=== PATIENT | female | born 1965 | race Caucasian/White ===

== ENCOUNTER 2019-07-05 15:52 | Emergency (ER) | payer OTHER, SELFPAY ==
[2019-07-05 16:42] VITALS: BP 139/64; PULSE 52; RESP 20; TEMP 36.7; O2SAT 100
--- NOTE | 2019-07-05 17:14 | ED.GENADULT ---
HPI - General Adult General Chief complaint: Eye Problems Stated complaint: Allergies Time Seen by Provider: 07/05/19 17:15 Source: patient and RN notes reviewed Mode of arrival: ambulatory Limitations: no limitations History of Present Illness HPI narrative: This is 54 years old female presents to the office for an evaluation of sinus allergies for two weeks. Saw her doctor for these symptoms about two weeks ago. He switched her from Zyrtec to Xyzal with no changes. Stated her symptom worsening for the last 2-day. Symptoms include watery eyes, itchy, blurry, stuffy nose, sneezing, and cough. Denies fever, vomiting, or diarrhea. She is not diabetic. She does not smoke. Related Data Home Medications Medication Instructions Recorded Confirmed cetirizine 10 mg PO DAILY 05/22/19 07/05/19 gabapentin 300 mg PO BID 05/22/19 07/05/19 metoprolol succinate 50 mg PO DAILY 05/22/19 07/05/19 ranitidine HCl 150 mg PO BID 05/22/19 07/05/19 topiramate 100 mg PO BID 05/22/19 07/05/19 venlafaxine 100 mg PO QPM 05/22/19 07/05/19 Allergies Allergy/AdvReac Type Severity Reaction Status Date / Time banana Allergy Severe THROAT Verified 07/05/19 16:47 SWELLING Cephalosporins Allergy Severe THROAT Verified 07/05/19 16:47 SWELLING Penicillins Allergy Severe Swelling Verified 07/05/19 16:47 Review of Systems Review of Systems: Narrative: CONSTITUTIONAL: Denies fever EYES: Denies eyes trauma/injury. She wears glassess only. ENT: Denies sore throat, otalgia. CARDIOVASCULAR: Denies chest pain RESPIRATORY: Denies dyspnea, wheezing GASTROINTESTINAL: Denies abdominal pain, nausea, vomiting, diarrhea. GENITOURINARY: Denies urinary symptoms or discharge SKIN: Denies rash MUSCULOSKELETAL: Denies acute back pain NEUROLOGIC: Denies lightheaded PMFSH Past Medical History Medical History Asthma Chronic back pain Gallstones Hypertension Irritable bowel syndrome Migraines Myocardial infarction Surgical History Surgical History History of bilateral carpal tunnel release History of hysterectomy Hx of tonsillectomy Social History Social History Smoking status: Former smoker Additional smoking assessment comments: states quit 3 years ago, states smoked off and on for 15 years Gender identity (if verbalized by the patient): Female Comments At time of signature, I agree with nursing past medical, surgical, social and family history. There is no relevant family history pertinent to the presenting complaint. Exam Narrative: Exam Narrative: GENERAL: This is a well-nourished, well-developed patient, in no apparent distress. EYES: bilateral eyes appears pink and watery; no matted eyelases. Vision is grossly intact. EARS: External ears normal, auditory canals clear and without drainage, TMs normal without perforation. Hearing grossly intact. NOSE: External nose normal with no obvious nasal discharge, nares edematous and erythema. THROAT: Mucous membranes moist, posterior pharynx clear. NECK: Neck supple, non-tender without lymphadenopathy, masses or thyromegaly. CARDIOVASCULAR: Regular rate and rhythm without murmurs, gallops, or rubs. RESPIRATORY: Clear to auscultation. Breath sounds equal bilaterally. No wheezes, rales, or rhonchi. GASTROINTESTINAL: Abdomen soft, non-tender, nondistended. Bowel sounds are active. No hepato-splenomegaly, or palpable masses. No guarding. SKIN: warm, intact with no suspicious lesions or rash, good texture and turgor. NEURO: awake, alert, and oriented to person, place and time. There were no obvious focal neurologic abnormalities. Steady gait [place] Coma Scale Eye Opening: Spontaneous 4 [place] Coma Scale Motor: Obeys Commands 6 [place] Coma Scale Verbal: Oriented 5 Medical Decision Making MDM Narrative Medical decision making n
== END 2019-07-05 17:39 | disposition home or self-care (01) ==
PROVIDERS: Emergency Provider Nurse Practitioner; PCP Internal Medicine
DX: H10.13 Acute atopic conjunctivitis, bilateral (principal); J31.0 Chronic rhinitis; J45.909 Unspecified asthma, uncomplicated; I10 Essential (primary) hypertension; I25.2 Old myocardial infarction; Z87.891 Personal history of nicotine dependence
CPT/HCPCS: 99213; G0463

== ENCOUNTER 2021-02-26 12:22 | Emergency (ER) | payer OTHER, SELFPAY ==
--- NOTE | 2021-02-26 12:30 | ED.EYEPROB ---
HPI - Eye Problem General Chief complaint: Eye Problems Stated complaint: discharge/reddness left eye Source: patient Mode of arrival: ambulatory Limitations: no limitations History of Present Illness HPI Narrative: Patient is a 55-year-old female with left eye pain, redness and discharge x1 day. She reports that she awoke like this today. She reports possibly something blowing in her eye yesterday afternoon. She does not wear contacts. She reports pain, discharge and photophobia. She denies all other complaints at this time. Patient is Covid vaccinated x2. She has used no [id number] medications prior to arrival. chief complaint: eye redness Related Data Home Medications Medication Instructions Recorded Confirmed cetirizine 10 mg PO DAILY 05/22/19 02/26/21 gabapentin 300 mg PO BID 05/22/19 02/26/21 metoprolol succinate 50 mg PO DAILY 05/22/19 02/26/21 ranitidine HCl 150 mg PO BID 05/22/19 02/26/21 venlafaxine 100 mg PO QPM 05/22/19 02/26/21 albuterol 90 mcg INHALATION Q4H PRN 02/26/21 02/26/21 cholecalciferol (vitamin D3) 25 mcg PO DAILY 02/26/21 02/26/21 [Vitamin D3] diclofenac sodium 75 mg PO BID 02/26/21 02/26/21 Allergies Allergy/AdvReac Type Severity Reaction Status Date / Time banana Allergy Severe THROAT Verified 02/26/21 12:43 SWELLING Cephalosporins Allergy Severe THROAT Verified 02/26/21 12:43 SWELLING Penicillins Allergy Severe Swelling Verified 02/26/21 12:43 Review of Systems Review of Systems: CONSTITUTIONAL: Denies fever, chills, or sweats. EYES: Reports pain, redness and discharge to left eye ENT: Denies rhinorrhea, congestion, sore throat, or otalgia. CARDIOVASCULAR: Denies chest pain, palpitations, or edema. RESPIRATORY: Denies cough or dyspnea. GASTROINTESTINAL: Denies abdominal pain, nausea, vomiting, or diarrhea. GENITOURINARY: Denies dysuria or hematuria. SKIN: Denies rash or itching. MUSCULOSKELETAL: Denies back pain, joint pain, or myalgia. NEUROLOGIC: Denies headache, numbness, dizziness, or weakness. PSYCHIATRIC: Denies anxiety or depression. ON LICENSE OF [facility] Past Medical History Medical History (Updated 10/09/21 @ 12:53 by WATSON Moreira) Asthma Chronic back pain Gallstones Hypertension Irritable bowel syndrome Migraines Myocardial infarction Surgical History Surgical History History of bilateral carpal tunnel release History of hysterectomy Hx of tonsillectomy Social History Social History (Updated 02/26/21 @ 12:33 by WATSON Moreira) Smoking status: Former smoker Tobacco type: cigarettes Additional smoking assessment comments: states quit 3 years ago, states smoked off and on for 15 years Alcohol intake: never Substance use: never Living arrangements: with family Gender identity (if verbalized by the patient): Female Comments At the time of signature, I have reviewed and agree with nursing past medical, surgical, social, and family history unless otherwise noted. Please see nursing chart for further information. There is no relevant family history pertinent to the presenting complaint. Exam Narrative: GENERAL: Well-appearing, well-nourished, and in no acute distress. HEAD: Normocephalic, atraumatic. EYES: EOMI. left eye sclera injected, clear discharge noted ENT: Mucous membranes pink and moist. CHEST: No respiratory distress. HEART: Regular rate and rhythm. EXTREMITIES: Normal range of motion. SKIN: Warm, dry, no rash. NEURO: No focal deficits. Alert and oriented x3. Gait steady. PSYCH: Normal affect. No signs of depression or anxiety. Procedures Other Procedure Procedure 1: Other Procedure: Left eye was anesthetized with 1 drop of tetracaine and anesthesia was achieved. The eye was flushed with eyewash. Lid was inverted and examined. Cornea was dyed with fluorescein and abrasion noted. Patient tolerated procedure well. MDM - Eye Problem MDM Narr
[2021-02-26 12:31] VITALS: BP 154/74; PULSE 64; RESP 18; TEMP 37.2; O2SAT 96
[2021-02-26 12:47] VITALS: BP 154/74; PULSE 64; RESP 18; TEMP 37.2; O2SAT 96
== END 2021-02-26 13:02 | disposition home or self-care (01) ==
PROVIDERS: Emergency Provider Nurse Practitioner; PCP Internal Medicine
DX: S05.02XA Injury of conjunctiva and corneal abrasion without foreign body, left eye, initial encounter (principal); X58.XXXA Exposure to other specified factors, initial encounter; J45.909 Unspecified asthma, uncomplicated; I10 Essential (primary) hypertension; I25.2 Old myocardial infarction; Z87.891 Personal history of nicotine dependence
CPT/HCPCS: 99213; A9270; G0463

== ENCOUNTER 2021-07-18 10:49 | Emergency (ER) | payer OTHER, SELFPAY ==
--- NOTE | 2021-07-18 10:51 | ED.URI ---
HPI - URI/Sore Throat General Chief Complaint: Upper Respiratory Infection Stated Complaint: Shortness of Breath Time Seen by Provider: 07/18/21 10:51 Source: patient and RN notes reviewed History of Present Illness HPI Narrative: Patient is a 56-year-old female who presents the urgent care with complaints of shortness of breath, cough, sore throat, intermittent nausea and ear pain. Patient states that her symptoms started last and seems to have gotten worse. Patient states that she does have a history of pneumonia and asthma. Patient has been using her inhaler but has been out of nebulizer solution. Patient has also been using [id number] cough medications. Denies of any history of ill contacts. Patient has had the COVID vaccine. No other acute complaints. No acute distress noted. Patient aware of the plan of care. Some parts of this dictation were generated by voice recognition software and may contain typographical and/or grammatical inaccuracies. Related Data Home Medications Medication Instructions Recorded Confirmed cetirizine 10 mg PO DAILY 05/22/19 07/18/21 gabapentin 300 mg PO BID 05/22/19 07/18/21 metoprolol succinate 50 mg PO DAILY 05/22/19 07/18/21 ranitidine HCl 150 mg PO BID 05/22/19 07/18/21 venlafaxine 100 mg PO QPM 05/22/19 07/18/21 albuterol 90 mcg INHALATION Q4H PRN 02/26/21 07/18/21 cholecalciferol (vitamin D3) 25 mcg PO DAILY 02/26/21 07/18/21 [Vitamin D3] diclofenac sodium 75 mg PO BID 02/26/21 07/18/21 Allergies Allergy/AdvReac Type Severity Reaction Status Date / Time banana Allergy Severe THROAT Verified 07/18/21 11:11 SWELLING Cephalosporins Allergy Severe THROAT Verified 07/18/21 11:11 SWELLING Penicillins Allergy Severe Swelling Verified 07/18/21 11:11 Review of Systems Review of Systems: CONSTITUTIONAL: Denies fever, chills, or sweats. EYES: Denies visual changes, redness, or discharge. ENT: Reports bilateral otalgia, rhinorrhea, sore throat CARDIOVASCULAR: Denies chest pain, palpitations, or edema. RESPIRATORY: Reports of cough and dyspnea GASTROINTESTINAL: Reports of intermittent nausea without abdominal pain, diarrhea or vomiting GENITOURINARY: Denies dysuria or hematuria. SKIN: Denies rash or itching. MUSCULOSKELETAL: Denies back pain, joint pain, or myalgia. NEUROLOGIC: Denies headache, numbness, or weakness. All other systems reviewed are negative, except as documented in HPI. [facility] Past Medical History Medical History (Updated 07/18/21 @ 11:55 by Valerie Cerda, WATSON) Asthma Chronic back pain Gallstones Hypertension Irritable bowel syndrome Migraines Myocardial infarction Surgical History Surgical History History of bilateral carpal tunnel release History of hysterectomy Hx of tonsillectomy Social History Social History (Updated 02/26/21 @ 12:33 by Janice Brown, ADMISSIONS DIRECTOR) Smoking status: Former smoker Tobacco type: cigarettes Additional smoking assessment comments: states quit 3 years ago, states smoked off and on for 15 years Alcohol intake: never Substance use: never Gender identity (if verbalized by the patient): Female Comments At the time of my signature, I reviewed and agree with the nursing past medical, surgical, social, and family history. There is no relevant family history pertinent to the patient complaint. Exam Narrative: GENERAL: This is a well-nourished, well-developed patient, in no apparent distress. HEAD: normocephalic, atraumatic. EYES: PERRL. Sclera clear/white. Vision is grossly intact. EARS: External ears normal, auditory canals clear and without drainage, TMs normal without perforation. Hearing grossly intact. NOSE: External nose normal with no obvious nasal discharge, nares without redness, clear to yellow rhinorrhea. THROAT: Mucous membranes moist, posterior pharynx clear. Moderate postnasal drainage NECK: Neck supple CARDIOVASCULAR:
[2021-07-18 11:03] VITALS: BP 139/75; PULSE 61; RESP 17; TEMP 36.4; O2SAT 97
[2021-07-18] MEDS: IPRATROPIUM BR 0.02% INH SOLN 0.5 MG/2.5 ML VIAL INHALATION (11:22)
[2021-07-18] MEDS: ALBUTEROL SULFATE NEB 2.5 MG/3 ML INH INHALATION (11:22)
== END 2021-07-18 12:05 | disposition home or self-care (01) ==
PROVIDERS: Emergency Provider Nurse Practitioner Family; PCP Internal Medicine
DX: J40 Bronchitis, not specified as acute or chronic (principal); J45.901 Unspecified asthma with (acute) exacerbation; Z20.822 Contact with and (suspected) exposure to COVID-19; Z87.891 Personal history of nicotine dependence; I10 Essential (primary) hypertension; I25.2 Old myocardial infarction
CPT/HCPCS: 87426; 94640; 99213; C9803; G0463

== ENCOUNTER 2021-10-01 14:43 | Emergency (ER) | payer OTHER, SELFPAY ==
[2021-10-01 14:50] VITALS: BP 147/61; PULSE 59; RESP 16; TEMP 36.8; O2SAT 98
--- NOTE | 2021-10-01 15:28 | ED.URI ---
HPI - URI/Sore Throat General Chief Complaint: Skin/Abscess/Foreign Body Stated Complaint: Swollen Gland Time Seen by Provider: 10/01/21 15:28 Source: patient and RN notes reviewed Mode of arrival: ambulatory Limitations: no limitations History of Present Illness HPI Narrative: 56-year-old female presents concern for swollen lymph node on the right side of her neck. She reports last week she had some runny nose, sneezing little bit of cough that has improved. However she is now concerned about the swollen lymph node. Reports it slightly tender. She denies any sore throat, trouble swallowing, fever, stiff neck. Reports she is worried because her mother of a blood clot in her neck. MD elicited complaint: other (Swollen lymph node) Related Data Home Medications Medication Instructions Recorded Confirmed cetirizine 10 mg PO DAILY 05/22/19 07/18/21 gabapentin 300 mg PO BID 05/22/19 07/18/21 metoprolol succinate 50 mg PO DAILY 05/22/19 07/18/21 venlafaxine 100 mg PO QPM 05/22/19 07/18/21 cholecalciferol (vitamin D3) 25 mcg PO DAILY 02/26/21 07/18/21 [Vitamin D3] diclofenac sodium 75 mg PO BID 02/26/21 07/18/21 famotidine 10/01/21 montelukast mg 10/01/21 topiramate 10/01/21 Allergies Allergy/AdvReac Type Severity Reaction Status Date / Time banana Allergy Severe THROAT Verified 10/01/21 15:21 SWELLING Cephalosporins Allergy Severe THROAT Verified 10/01/21 15:21 SWELLING Penicillins Allergy Severe Swelling Verified 10/01/21 15:21 Review of Systems Review of Systems: CONSTITUTIONAL: Denies malaise, chills, sweats, or fever. EYES: Denies visual changes, redness, or discharge. ENT: Denies rhinorrhea, congestion, sinus pain, otalgia and sore throat. Reports swollen lymph node on the right side of the neck CARDIOVASCULAR: Denies chest pain, palpitations, or edema. RESPIRATORY: Denies cough. Denies dyspnea. GASTROINTESTINAL: Denies abdominal pain, nausea, vomiting, diarrhea SKIN: Denies rash or itching. MUSCULOSKELETAL: Denies myalgia. NEUROLOGIC: Denies headache. All systems reviewed & are unremarkable except as noted in HPI and below PMFSH Past Medical History Medical History (Updated 10/01/21 @ 15:38 by Arely Villagran, VANI) Asthma Chronic back pain Gallstones Hypertension Irritable bowel syndrome Migraines Myocardial infarction Surgical History Surgical History History of bilateral carpal tunnel release History of hysterectomy Hx of tonsillectomy Social History Social History (Updated 02/26/21 @ 12:33 by Janice Brown, [employer]NER) Smoking status: Former smoker Tobacco type: cigarettes Additional smoking assessment comments: states quit 3 years ago, states smoked off and on for 15 years Alcohol intake: never Substance use: never Gender identity (if verbalized by the patient): Female Comments At time of signature, agree with nursing past medical, surgical, social and family history. There is no relevant family history pertinent to the presenting complaint Exam Narrative: GENERAL: Well-appearing, well-nourished, and in no acute distress. HEAD: Normocephalic EYES: PERRLA, conjunctivae clear ENT: Nares clear, no discharge. Mucous membranes moist. TM pearly moulton with sharp light reflex bilaterally; no tragal tenderness. Oropharynx not erythematous without lesions. Tonsils not enlarged and without exudate, no drooling, no hoarseness, no trismus, uvula midline. NECK: Supple. Mild right cervical lymphadenopathy. No jugular venous distension, thyromegaly, or carotid bruits. Carotids were easily palpable bilaterally. CHEST: Clear to auscultation, breath sounds equal. No wheezing, rhonchi, rales, or stridor. No respiratory distress, speaks in full sentences. HEART: Regular rate and rhythm. No murmur heard. SKIN: Warm, dry, no rash. NEURO: Alert and oriented x3. PSYCH: Normal mood and affect Course Course [facility]
== END 2021-10-01 15:40 | disposition home or self-care (01) ==
PROVIDERS: Emergency Provider Nurse Practitioner; PCP Internal Medicine
DX: R59.1 Generalized enlarged lymph nodes (principal); J45.909 Unspecified asthma, uncomplicated; I10 Essential (primary) hypertension; I25.2 Old myocardial infarction; Z87.891 Personal history of nicotine dependence
CPT/HCPCS: 99211; G0463

== ENCOUNTER 2022-03-26 14:53 | Emergency (ER) | payer OTHER, SELFPAY ==
--- NOTE | ~2022-03-26 | XR_ITS ---
EXAMINATION: XR chest 2V Exam Date/Time: 03/26/2022 16:48 CHARGEMASTER SPECIALIST HISTORY: COUGH/WHEEZING X 1 WEEK. Comparison: None available. RESULT: Lines, tubes, and devices: None. Lungs and pleura: Clear. Cardiomediastinal silhouette: Unremarkable. Polygonal opacity projects over the left midlung, presum ably representing external artifact. Other: No acute osseous or upper abdominal finding. IMPRESSION: No acute cardiopulmonary process. Reviewed, dictated and finalized at location K. GEMASTER SPECIALIST
[2022-03-26 15:00] VITALS: BP 141/70; PULSE 72; RESP 22; TEMP 36.6; O2SAT 98
--- NOTE | 2022-03-26 16:36 | ED.GENADULT ---
HPI - General Adult General Chief complaint: Upper Respiratory Infection Stated complaint: Shortness of Breath Source: patient Mode of arrival: ambulatory Limitations: no limitations History of Present Illness HPI narrative: Patient presents for evaluation of sick symptoms for the last week. Symptoms include fever, nasal congestion, postnasal drainage, sore throat, nonproductive cough, wheezing, shortness of breath, and nausea. No diarrhea, vomiting or chest pain. She has an underlying hx of asthma and states she has been using her albuterol inhaler every four hours the past week. She has only used her neb once in the past week and it so happened to be today. She does not smoke. She had COVID two years ago. No recent sick contacts. She is not taking any medications to assist with her symptoms. No additional complaints or concerns. Related Data Home Medications Medication Instructions Recorded Confirmed cetirizine 10 mg tablet 10 mg PO DAILY 05/22/19 03/26/22 gabapentin 300 mg capsule 300 mg PO BID 05/22/19 03/26/22 metoprolol succinate 50 mg 50 mg PO DAILY 05/22/19 03/26/22 tablet,extended release 24 hr venlafaxine 100 mg tablet 100 mg PO QPM 05/22/19 03/26/22 cholecalciferol (vitamin D3) 25 25 mcg PO DAILY 02/26/21 03/26/22 mcg (1,000 unit) capsule (Vitamin D3) diclofenac sodium 75 mg 75 mg PO BID 02/26/21 03/26/22 tablet,delayed release famotidine 20 mg tablet 20 mg PO DAILY 10/01/21 03/26/22 montelukast 10 mg tablet 10 mg PO DAILY 10/01/21 03/26/22 topiramate 100 mg tablet 100 mg PO BID 10/01/21 03/26/22 budesonide-formoterol HFA 80 1 puff inhalation BID 03/26/22 03/26/22 mcg-4.5 mcg/actuation aerosol inhaler (Symbicort) Allergies Allergy/AdvReac Type Severity Reaction Status Date / Time banana Allergy Severe THROAT Verified 03/26/22 15:32 SWELLING Cephalosporins Allergy Severe THROAT Verified 03/26/22 15:32 SWELLING Penicillins Allergy Severe Swelling Verified 03/26/22 15:32 Review of Systems Review of Systems: CONSTITUTIONAL: Reports fever. Denies chills EYES: Denies visual changes, redness, or discharge. ENT: Reports nasal congestion, postnasal drainage and sore throat CARDIOVASCULAR: Denies chest pain, palpitations, or edema. RESPIRATORY: Reports cough, wheezing and SOB GASTROINTESTINAL: Reports nausea. Denies abdominal pain, vomiting, or diarrhea. GENITOURINARY: Denies dysuria or hematuria. SKIN: Denies rash or itching. MUSCULOSKELETAL: Denies back pain, joint pain, or myalgia. NEUROLOGIC: Denies headache, numbness, dizziness, or weakness. PSYCHIATRIC: Denies anxiety or depression. [facility] Past Medical History Medical History (Updated 03/26/22 @ 17:24 by Guillermo Geronimo, HAND GLOVE CLEANER, ) Asthma Chronic back pain Gallstones Hypertension Irritable bowel syndrome Migraines Myocardial infarction Surgical History Surgical History History of bilateral carpal tunnel release History of hysterectomy Hx of tonsillectomy Family History Family History Mother Family history non-contributory Social History Social History (Updated 03/26/22 @ 16:39 by Guillermo Geronimo, [facility], ) Smoking status: Former smoker Tobacco type: cigarettes Additional smoking assessment comments: states quit 3 years ago, states smoked off and on for 15 years Alcohol intake: never Substance use: never Gender identity (if verbalized by the patient): Female Spiritual care concerns: No Exam Narrative: GENERAL: Well-appearing, well-nourished, and in no acute distress. HEAD: Normocephalic, atraumatic. EYES: PERRLA and EOMI. ENT: Nares clear, no rhinorrhea or epistaxis. Mucous membranes moist. Oropharynx without tonsillar hypertrophy exudate or other lesions. Bilateral TMs pearly moulton nonbulging NECK: Supple. No adenopathy or masses. No carotid bruits or JVD CHEST: Clarissa
== END 2022-03-26 17:27 | disposition home or self-care (01) ==
PROVIDERS: Emergency Provider Nurse Practitioner; PCP Internal Medicine
DX: J06.9 Acute upper respiratory infection, unspecified (principal); J45.909 Unspecified asthma, uncomplicated; I10 Essential (primary) hypertension; I25.2 Old myocardial infarction; Z87.891 Personal history of nicotine dependence; Z20.822 Contact with and (suspected) exposure to COVID-19
CPT/HCPCS: 71046; 87426; 87804; 99213; C9803; G0463

== ENCOUNTER 2022-05-09 13:04 | Emergency (ER) | payer OTHER, SELFPAY ==
[2022-05-09 13:12] VITALS: BP 155/63; PULSE 63; RESP 20; TEMP 36.8; O2SAT 96
--- NOTE | 2022-05-09 13:51 | ED.URI ---
HPI - URI/Sore Throat General Chief Complaint: Upper Respiratory Infection Stated Complaint: Cough Time Seen by Provider: 05/09/22 14:03 Source: patient and RN notes reviewed Mode of arrival: ambulatory Limitations: no limitations History of Present Illness HPI Narrative: 56-year-old female presents with concern for 2 week history of cough. She reports a history of asthma. She reports she had symptoms started 2 weeks ago, at that time she had fever, chills, aches, sweats. Reports those symptoms have improved but she continues to have a persistent cough with episodic shortness of breath. MD elicited complaint: cough and nasal congestion Related Data Home Medications Medication Instructions Recorded Confirmed cetirizine 10 mg tablet 10 mg PO DAILY 05/22/19 05/09/22 gabapentin 300 mg capsule 300 mg PO BID 05/22/19 05/09/22 metoprolol succinate 50 mg 50 mg PO DAILY 05/22/19 05/09/22 tablet,extended release 24 hr venlafaxine 100 mg tablet 100 mg PO QPM 05/22/19 05/09/22 cholecalciferol (vitamin D3) 25 25 mcg PO DAILY 02/26/21 05/09/22 mcg (1,000 unit) capsule (Vitamin D3) diclofenac sodium 75 mg 75 mg PO BID 02/26/21 05/09/22 tablet,delayed release famotidine 20 mg tablet 20 mg PO DAILY 10/01/21 05/09/22 montelukast 10 mg tablet 10 mg PO DAILY 10/01/21 05/09/22 topiramate 100 mg tablet 100 mg PO BID 10/01/21 05/09/22 budesonide-formoterol HFA 80 1 puff inhalation BID 03/26/22 05/09/22 mcg-4.5 mcg/actuation aerosol inhaler (Symbicort) Allergies Allergy/AdvReac Type Severity Reaction Status Date / Time banana Allergy Severe THROAT Verified 05/09/22 13:16 SWELLING Cephalosporins Allergy Severe THROAT Verified 05/09/22 13:16 SWELLING Penicillins Allergy Severe Swelling Verified 05/09/22 13:16 Review of Systems Review of Systems: CONSTITUTIONAL: Reports malaise. Denies chills, sweats, or fever. EYES: Denies visual changes, redness, or discharge. ENT: Reports rhinorrhea, congestion, left otalgia. Denies sinus pain and sore throat. CARDIOVASCULAR: Denies chest pain, palpitations, or edema. RESPIRATORY: Reports persistent cough. Denies dyspnea. GASTROINTESTINAL: Denies abdominal pain, nausea, vomiting, diarrhea SKIN: Denies rash or itching. MUSCULOSKELETAL: Denies myalgia. NEUROLOGIC: Denies headache. All systems reviewed & are unremarkable except as noted in HPI and below PMFSH Past Medical History Medical History (Updated 05/09/22 @ 13:59 by Arely Villagran NP) Asthma Chronic back pain Gallstones Hypertension Irritable bowel syndrome Migraines Myocardial infarction Surgical History Surgical History History of bilateral carpal tunnel release History of hysterectomy Hx of tonsillectomy Family History Family History Mother Family history non-contributory Social History Social History (Updated 03/26/22 @ 16:39 by TENNILLE RashidP, ) Smoking status: Former smoker Tobacco type: cigarettes Additional smoking assessment comments: states quit 3 years ago, states smoked off and on for 15 years Alcohol intake: never Substance use: never Gender identity (if verbalized by the patient): Female Spiritual care concerns: No Comments At time of signature, agree with nursing past medical, surgical, social and family history. There is no relevant family history pertinent to the presenting complaint Exam Narrative: GENERAL: Nontoxic-appearing and in no acute distress. HEAD: Normocephalic EYES: PERRLA, conjunctivae clear ENT: Nares clear. Mucous membranes moist. TM pearly moulton with dull light reflex bilaterally; no tragal tenderness. Oropharynx not erythematous without lesions. Tonsils not enlarged and without exudate, no drooling, no hoarseness, no trismus, uvula midline. NECK: Supple. No lymphadenopathy CHEST: Clear to auscultation, breath sounds eq
== END 2022-05-09 14:14 | disposition home or self-care (01) ==
PROVIDERS: Emergency Provider Nurse Practitioner; PCP Internal Medicine
DX: J06.9 Acute upper respiratory infection, unspecified (principal); J45.909 Unspecified asthma, uncomplicated; I10 Essential (primary) hypertension; I25.2 Old myocardial infarction; Z87.891 Personal history of nicotine dependence
CPT/HCPCS: 99213; G0463

== ENCOUNTER 2025-04-14 16:20 | Emergency (ER) | payer OTHER, SELFPAY ==
[2025-04-14 16:24] VITALS: BP 152/53; PULSE 67; RESP 20; TEMP 36.5; O2SAT 97
--- NOTE | 2025-04-14 16:36 | ED.URI ---
HPI - URI/Sore Throat General Chief Complaint: Upper Respiratory Infection Stated Complaint: Shortness of Breath/Cough Time Seen by Provider: 04/14/25 16:30 Source: patient Mode of arrival: ambulatory Limitations: no limitations History of Present Illness HPI Narrative: Livier is a 59-year-old female patient presenting to the clinic today with complaints of a 2 day history of cough and shortness of breath. She reports she does have some nasal congestion as well. No known fevers, chills, body aches. Is coughing up some clear phlegm. History of asthma. Last breathing treatment was last night. Patient is out of the breathing treatment medications. Related Data Home Medications ?Medication ?Instructions ?Recorded ?Confirmed ?Last Taken ?Type cetirizine 10 mg tablet 10 mg PO DAILY 05/22/19 05/09/22 Unknown History gabapentin 300 mg capsule 300 mg PO BID 05/22/19 05/09/22 Unknown History metoprolol succinate 50 mg 50 mg PO DAILY 05/22/19 05/09/22 Unknown History tablet,extended release 24 hr cholecalciferol (vitamin D3) 25 25 mcg PO DAILY 02/26/21 05/09/22 Unknown History mcg (1,000 unit) capsule (Vitamin D3) famotidine 20 mg tablet 20 mg PO DAILY 10/01/21 05/09/22 Unknown History montelukast 10 mg tablet 10 mg PO DAILY 10/01/21 05/09/22 Unknown History topiramate 100 mg tablet 100 mg PO BID 10/01/21 05/09/22 Unknown History budesonide-formoterol HFA 80 1 puff inhalation BID 03/26/22 05/09/22 Unknown History mcg-4.5 mcg/actuation aerosol inhaler (Symbicort) amlodipine 10 mg tablet mg 04/14/25 Unknown History duloxetine 30 mg capsule,delayed mg PO 04/14/25 Unknown History release duloxetine 60 mg capsule,delayed mg PO 04/14/25 Unknown History release pregabalin 75 mg capsule mg 04/14/25 Unknown History Allergies Allergy/AdvReac Type Severity Reaction Status Date / Time banana Allergy Severe THROAT Verified 04/14/25 16:31 SWELLING Cephalosporins Allergy Severe THROAT Verified 04/14/25 16:31 SWELLING Penicillins Allergy Severe Swelling Verified 04/14/25 16:31 Review of Systems Review of Systems: Pertinent positives per HPI. Patient denies any fever, chills, rash, headache, visual changes, dizziness, cough, shortness of breath, chest pain, palpitations, nausea, vomiting, diarrhea, constipation, abdominal pain, or any urinary issues. [facility] Past Medical History Medical History (Updated 04/14/25 @ 17:15 by Karl Elizabeth APRN) Asthma Chronic back pain Irritable bowel syndrome Gallstones Hypertension Myocardial infarction Migraines Surgical History Surgical History History of bilateral carpal tunnel release History of hysterectomy Hx of tonsillectomy Family History Family History Mother Family history non-contributory Social History Social History (Updated 03/26/22 @ 16:39 by Guillermo Geronimo APRN, [facility]) Smoking status: Former smoker Tobacco type: cigarettes Additional smoking assessment comments: states quit 3 years ago, states smoked off and on for 15 years Alcohol intake: never Substance use: never Living arrangements: with family Gender identity (if verbalized by the patient): Female Spiritual care concerns: No Comments At the time of my signature, I reviewed and agree with the nursing past medical, surgical, social, and family history. There is no relevant family history pertinent to the patient complaint. Exam Narrative: General: Well-developed, obese, in no apparent distress Head: Normocephalic, atraumatic Eyes: Pupils equally round and reactive to light bilaterally, EOM intact, sclera and conjunctive clear, no discharge, lids normal Ears: TMs intact and clear, ear canals clear, no drainage, grossly hearing normal. Nose: Nares patent, clear discharge, no inflammation, no sinus tenderness. Mouth: Oral pharynx without lesions or masses, good dentition, MMM. Postnasal drip Neck: Supple, trachea midline, no enlargement of anterior or posterior cervical nodes, no thyroid masses or goiter palpable. Cardio: Regular rate and rhythm, s1 and s2 normal, no murmur appreciated. Resp: Diminished breath sounds with expiratory wheezing, no rhonchi, rales, or rubs Course Course Emergency Course: Portions of this record may have been created with voice recognition software. Level of Care: Express Care Visit Vital Signs Vital signs: Vital Signs Temperature 36.5 C 04/14/25 16:24 Pulse Rate 67 04/14/25 16:24 Respiratory Rate 20 04/14/25 16:24 Blood Pressure 152/53 H 04/14/25 16:24 Pulse Oximetry 97 04/14/25 16:24 Oxygen Delivery Room Air 04/14/25 16:24 Temperature 36.8 C 04/14/25 16:46 Pulse Rate 73 04/14/25 16:46 Respiratory Rate 20 04/14/25 16:46 Blood Pressure 174/108 H 04/14/25 16:46 Pulse Oximetry 98 04/14/25 16:46 Oxygen Delivery Room Air 04/14/25 16:46 Vital signs reviewed MDM - URI/Sore Throat MDM Narrative Medical decision making narrative: At the time of visit patient is resting comfortably on the exam table. Patient appears to be nontoxic. Complaints of a 2 day history of cough and shortness of breath. She reports she does have some nasal congestion as well. No known fevers, chills, body aches. Is coughing up some clear phlegm. History of asthma. Last breathing treatment was last night. Patient is out of the breathing treatment medications. On exam patient has bilateral TMs intact and clear, clear nasal drainage, no anterior turbinate inflammation, oropharynx with postnasal drip, lung sounds are diminished with faint wheezing, heart rates regular rate and rhythm. Oxygen saturations 97% on room air. COVID testing was ordered. Medications: Solu-Medrol 125 mg IM given in the clinic today. Hand-held neb treatment DuoNeb given in the clinic today Labs: COVID testing was negative in the clinic today. Plan: I suspect patient has asthma exacerbation/URI. Lung sounds improved after DuoNeb treatment was given. Patient reports she is breathing easier in her oxygen saturation has increased to 98% on room air. Solu-Medrol 125 mg IM given in the clinic today and will send her in prescription for prednisone to start tomorrow. Will also send in refill of her albuterol solution. No sign of bacterial infection in the clinic today. Supportive measures were discussed with the patient and they voiced understanding discharge instructions and agrees to treatment plan. Return precautions reviewed Differential Diagnosis Differential diagnosis: Likely upper respiratory infection, otitis media, sinusitis, viral infection, bronchitis, influenza, pharyngitis and other (COVID) Lab Data Labs: Lab Results 04/14/25 Range/Units 16:36 POC SARS CoV-2 Ag Negative (Negative) Discharge Plan Discharge Clinical Impression: Asthma exacerbation Qualifiers: Asthma severity: mild Asthma persistence: unspecified Qualified Code(s): J45.901 - Unspecified asthma with (acute) exacerbation Upper respiratory infection Qualifiers: URI type: unspecified URI Qualified Code(s): J06.9 - Acute upper respiratory infection, unspecified Patient Disposition: Home Condition: Stable Instructions: Antibiotic Form, Asthma (ED), Cold Symptoms (ED) Additional Instructions: Solu-Medrol 125 mg IM given in the clinic today DuoNeb hand-held neb treatment was given in the clinic today. Continue current medications as prescribed Take prescription medications only as prescribed-prednisone Increase fluids and stay well hydrated May take Tylenol or motrin as directed on bottle for pain/fever May use Flonase 1 spray in each nare daily May take OTC antihistamines such as Zyrtec or Claritin daily as directed on bottle May apply Vicks vapor rub to chest to open sinuses Sinus rinses for congestion Cepacol spray, cough drops, throat lozenges, warm tea with honey/lemon, gargle salt water to soothe throat BRAT diet for diarrhea Clear liquids x 24 hours then advance as tolerated for nausea/vomiting Go to the ED if you develop a worsening in your condition- high fever not controlled by Tylenol or Motrin, dehydration, weakness, lethargy, shortness of breath, or chest pain. Follow up with your PCP in 3-5 days if symptoms persist. Patient Language: Kiswahili Prescriptions: New prednisone 20 mg tablet 40 mg PO DAILY 5 Days Qty: 10 0RF albuterol sulfate 2.5 mg /3 mL (0.083 %) solution for nebulization 2.5 mg inhalation Q4-6H PRN (Reason: shortness of breath or wheezing) 30 Days Qty: 540 0RF No Action cholecalciferol (vitamin D3) [Vitamin D3] 25 mcg (1,000 unit) Capsule 25 mcg PO DAILY albuterol sulfate 2.5 mg /3 mL (0.083 %) solution for nebulization 2.5 mg inhalation Q6H Qty: 75 0RF amlodipine 10 mg tablet duloxetine 30 mg capsule,delayed release(DR/EC) PO duloxetine 60 mg capsule,delayed release(DR/EC) PO pregabalin 75 mg capsule cetirizine 10 mg Tablet 10 mg PO DAILY metoprolol succinate 50 mg Tablet Extended Release 24 Hr 50 mg PO DAILY gabapentin 300 mg Capsule 300 mg PO BID famotidine 20 mg tablet 20 mg PO DAILY montelukast 10 mg tablet 10 mg PO DAILY topiramate 100 mg tablet 100 mg PO BID budesonide-formoterol [Symbicort] 80-4.5 mcg/actuation HFA aerosol inhaler 1 puff INHALATION BID albuterol sulfate 90 mcg/actuation HFA aerosol inhaler 2 puff INHALATION QID PRN (Reason: shortness of breath or wheezing) Qty: 8.5 0RF Follow-up/Referrals: Luis A,Jose Maldonado MD [Primary Care Provider, Unknown] Time of Disposition: 16:53 Quality NIHSS Nursing Documentation ED NIHSS nursing documentation: reviewed/agree
[2025-04-14] MEDS: IPRATROPIUM 0.5 MG/ALBUTEROL SULFATE 2.5 MG (BASE) AMPUL.NEB 3 ML INHALATION (16:42)
[2025-04-14 16:46] VITALS: BP 174/108; PULSE 73; RESP 20; TEMP 36.8; O2SAT 98
[2025-04-14 17:03] LABS: EDCOVIDSCREEN Negative (Negative)
--- OUTSIDE RECORDS SUMMARY | 2025-04-14 17:25 | XMS_ITS | Encounter Summary ---
Author Organization [facility] Health Address [address] [place] [address] Care Team Providers Care Surgeon Partner Name Role Phone Teri Jiang MD Primary Care Provider [phone] Reason for Visit * Reason Onset Date Comments Future Appointment 01/02/2019 Encounter Details Date Type Department Care Team (Late st Contact Info) Description 01/02/2019 Telephone [facility] [address] [place] [address] Faustina Hooper Future Appointment Social History Tobacco Use Types Packs/Day Years Used Date Smoking Tobacco: Former Smokeless Tobacco: Former Quit: 2002 Alcohol Use Standard Drinks/Week Comments No 0 (1 standard drink = 0.6 oz pur e alcohol) Comments No Sex and Gender Information Value Date Recorded Sex Assigned at Female 10/01/2020 1:39 PM CDT Legal Sex Female 5:59 PM CDT Gender Identity Female 10/01/2020 1:39 PM CDT Sexual Orientation Straight 10/01/2020 1: 40 PM CDT documented as of this encounter Plan of Treatment Not on file documented as of this encounter Visit Diagnoses Not on filedocumented in this encounter Care Teams Surgeon Partner Relationship Specialty Start Date End Date Teri Jiang MD [address] [place] [phone] PCP - General Internal Medicine 09/03/17 documented as of this encounter
--- OUTSIDE RECORDS SUMMARY | 2025-04-14 17:25 | XMS_ITS | Clinical Summary ---
Author Organization [facility] Medical Office [facility] Address [address] [place] [address] Care Team Providers Care Spiral Runner Name Role Phone Unavailable Primary Care Provider Unavailabl e Social History Tobacco Use Types Packs/Day Years Used Date Smoking Tobacco: Never Assessed Comments Unknown Sex and Gender Information Value Date Recorded Sex Assigned at Not on file Legal Sex Female 10:46 AM CDT Gender Identity Not on file Sexual Orientation Not on file Plan of Treatment Health Maintenance Due Date Last Done Comments DTAP/TDAP/TD VACCINES (1 - Tdap) 1986 HEPATITIS B VACCINES (1 of 3 - 19+ 3-dose series) 04/21 HPV/Cotest (21-29) 1988 CERVICAL CANCER SCREENING 1997 HPV/Cotest (30-65) 1997 PAP SMEAR 1997 BREAST CANCER SCREENING 2007 COLORECTAL SCREENING 2012 Colorectal Cancer Screening 2012 FIT-DNA Q 3 years 2012 FIT/FOBT Q 1 year 2012 Flex Sig/CT Colonography Q 5 years 2012 ZOSTER VACCINE (1 of 2) 2017 INFLUENZA VACCINE (#1) 2024
--- OUTSIDE RECORDS SUMMARY | 2025-04-14 17:25 | XMS_ITS | Clinical Summary ---
Author Organization [facility] Address [address] [place] [address] Phone Care Team Providers Care Director Women Name Role Phone Teri Jiang MD Primary Care Provider [phone] Allergies Active Allergy Reactions Criticality Noted Date Comments Penicillin G Unknown 02/08/2016 Medications atenolol (TENORMIN) 25 MG Tablet TK 1 T PO QD 3 6 Active cetirizine (ZYRTEC) 10 MG Tablet TK 1 T PO QD PRN 0 6 Active FLUoxetine (PROZAC) 20 MG Capsule TK 2 CS PO QAM 3 6 Active gabapentin (NEURONTIN) 300 MG Capsule TK 1 C PO ONCE TO BID 0 6 Active RaNITidine HCl 150 MG Capsule TK 1 C PO BID PRN 3 6 Active tiZANidine (ZANAFLEX) 4 MG Tablet TK 1 T PO Q 12 H PRN 1 6 Active topiramate (TOPAMAX) 100 MG Tablet TK 1 T PO BID 1 6 Active ergocalciferol (VITAMIN D) 75462 UNIT Capsule TK 1 C PO Q WEEK 0 6 Active naproxen (NAPROSYN) 375 MG Tablet TK 1 T PO ONCE TO BID WITH A MEAL PRF PAIN 0 7 Active albuterol (PROVENTIL, VENTOLIN) (2.5 MG/3ML) 0.083% Nebulizer Soln 2.5 mg by Nebulization route. Active albuterol 108 (90 Base) MCG/ACT Aerosol Solution take 2 Puffs by inhalation every 4 hours as needed. Active diclofenac (CATAFLAM) 50 MG Tablet Take 50 mg by mouth 2 times daily. Active DOXYCYCLINE MONOHYDRATE PO Take by mouth. Active famotidine (PEPCID) 20 MG Tablet Take 20 mg by mouth 2 times daily. Active metoprolol tartrate (LOPRESSOR) 25 MG Tablet Take 25 mg by mouth 2 times daily. Active metoprolol Succinate (TOPROL-XL) 50 MG TABLET SR 24 HR Take 50 mg by mouth daily. Active montelukast (SINGULAIR) 10 MG Tablet Take 10 mg by mouth every evening. Active predniSONE (DELTASONE) 10 MG Tablet Take 10 mg by mouth daily. Active venlafaxine (EFFEXOR-XR) 150 MG CAPSULE SR 24 HR Take 150 mg by mouth daily. Active Active Problems Problem Noted Date Diagnosed Date Morbid obesity 02/17/2016 Snores 02/17/2016 Gastroesophageal reflux disease without esophagi tis 02/17/2016 Essential (primary) hypertension 02/17/2016 Mild intermittent asthma with acute exacerbation 02/17/2016 Family History Medical History Relation Name Comments Asthma Mother Diabetes Mother Hypertension Mother Migraines Mother Osteoporosis Mother Asthma Sister Attention Deficit Hyperactivity Disorder Sister Depression Sister Diabetes Sister Relation Name Status Comments Mother Sister Social History Tobacco Use Types Packs/Day Years Used Date Smoking Tobacco: Former Tobacco Cessation:Counseling Given: Yes Alcohol Use Standard Drinks/Week Comments No 0 (1 standard drink = 0.6 oz pur e alcohol) Sexually Active Control Partners Comments Not Currently Comments No Sex and Gender Information Value Date Recorded Sex Assigned at Not on file Legal Sex Female 11:03 PM CDT Gender Identity Not on file Sexual Orientation Not on file Last Filed Vital Signs Vital Sign Reading Time Taken Comments Blood Pressure 124/80 07/13/2016 2:01 PM [employer] DRAWER Pulse 54 07/13/2016 2:01 PM [employer] Temperature 36.6 C (97.8 F) 07/13/2016 2:01 PM [employer]RAW[employer] Respiratory Rate 19 07/13/2016 2:01 PM [employer] Oxygen Saturation 97% 07/13/2016 2:01 PM [employer]RAW[employer] Inhaled Oxygen Concentration - - Weight 111.1 kg (245 lb) 07/13/2016 2:01 PM [employer] Height 160 cm (5' 3) 07/13/2016 2:01 PM [employer]RAW[employer] Body Mass Index 43.4 07/13/2016 2:01 PM [employer] DRAWER Plan of Treatment Health Maintenance Due Date Last Done Comments Hepatitis C Virus (HCV) Screening 1967 TdaP Immunization 1967 Varicella Immunization (1 of 2 - 13+ 2-dose series) 1980 Hepatitis B Immunization (1 of 3 - 19+ 3-dose series) 1986 Pneumococcal Immunization (5 0+ years) (1 of 2 - PCV) 1986 Cologuard 2012 Colonoscopy 2012 Colorectal Cancer Screening 2012 Immunochemical Fecal Occult Blood 2012 Respiratory Syncytial Virus (RSV) Immunization (Adult) (1 - Risk 50-74 years 1-dose series) 2017 Zoster Immunization (1 of 2) 2017 Mammogram 11/17/2022 11/17/2021, 11/07/2018, 05/11/2015 Influenza Immunization (#1) 01/19/202501/19, 02/14/2018 SARS-COV-2 Immunization ( season) 2025 02/04/2021, 12/18/2020 Human Papillomavirus (HPV) Immunization Aged Out No longer eligible b ased on patient's age to complete this topic Meningococcal Immunization (ACWY) Aged Out No longer eligible b ased on patient's age to complete this topic Rotavirus Immunization Aged Out No lo nger eligible based on patient's age to complete this topic Procedures Procedure Name Priority Date/Time Associated Diagnosis Comments ALLEN SCREENING BILATERAL DIGITAL W CAD W JOSÉ Routine 11/17/2021 5:03 PM CDT Visit for screening mammogram from Last 3 Months or Most Recently Relevant to Health Maintenance Results * ALLEN SCREENING BILATERAL DIGITAL W CAD W JOSÉ (11/17/2021 5:03 PM CDT) Anatomical Region Laterality Modality breast Bilateral Mammography 11/17/2021 4:32 PM CDT Narrative 11/18/2021 2:48 PM CDT - ALLEN SCREENING BILATERAL DIGITAL W CAD W JOSÉ BILATERAL DIGITAL SCREENING MAMMOGRAM 3D/2D WITH CAD WITH MEDIOLATERAL OBLIQUE CRANIOCAUDAL: 11/17/2021 The study was acquired using digital technology and interpreted from soft copy. Current study was also evaluated with ICAD version 7.2. 2D digital mammographic views, as well as 3D digital tomosynthesis were performed in the CC and MLO projections. CLINICAL: Routine screening. Patient notes intermittent right lateral breast pain when wearing an underwire bra. She would like to proceed with a screening exam. No personal history of cancer. Maternal grandmother had breast cancer. COMPARISONS: Comparison is made to exams dated: 11/07/2018 and 05/11/2015 [facility]. BREAST TISSUE:There are scattered fibroglandular densities in both breasts. FINDINGS: No significant masses, calcifications, or other findings are seen in either breast. IMPRESSION: BI-RAD 1 NEGATIVE There is no mammographic evidence of malignancy. If there is clinical concern regarding breast pain, the patient should return for targeted breast ultrasound. A 1 year screening mammogram is recommended. A letter will be sent to the patient with these results. The patient will be entered into a reminder system with a target due date of 1 year for her next screening exam. Electronically signed by: Beverly Morales M.D. ab/:11/18/2021 14:15:39 Insurance Territory Manager(s): RT María(R)(M), [facility] letter sent: Normal Exam Reading location: [facility] BI-RADS: 1 Negative Procedure Note Beverly Morales MD - 11/18/2021 - ALLEN SCREENING BILATERAL DIGITAL W CAD W JOSÉ BILATERAL DIGITAL SCREENING MAMMOGRAM 3D/2D WITH CAD WITH MEDIOLATERAL OBLIQUE CRANIOCAUDAL: 11/17/2021 The study was acquired using digital technology and interpreted from soft copy. Current study was also evaluated with ICAD version 7.2. 2D digital mammographic views, as well as 3D digital tomosynthesis were performed in the CC and MLO projections. CLINICAL: Routine screening. Patient notes intermittent right lateral breast pain when wearing an underwire bra. She would like to proceed with a screening exam. No personal history of cancer. Maternal grandmother had breast cancer. COMPARISONS: Comparison is made to exams dated: 11/07/2018 and 05/11/2015 [facility]. BREAST TISSUE:There are scattered fibroglandular densities in both breasts. FINDINGS: No significant masses, calcifications, or other findings are seen in either breast. IMPRESSION: BI-RAD 1 NEGATIVE There is no mammographic evidence of malignancy. If there is clinical concern regarding breast pain, the patient should return for targeted breast ultrasound. A 1 year screening mammogram is recommended. A letter will be sent to the patient with these results. The patient will be entered into a reminder system with a target due date of 1 year for her next screening exam. Electronically signed by: Beverly Morales M.D. ab/:11/18/2021 14:15:39 Insurance Territory Manager(s): RT María(R)(M), [facility] letter sent: Normal Exam Reading location: [facility] BI-RADS: 1 Negative Teri Jiang MD IMG MAMMO ORDERABLES Final Result from Last 3 Months or Most Recently Relevant to Health Maintenance Insurance [employer]ICAID [employer] Care Teams Director Women Relationship Specialty Start Date End Date Teri Jiang MD PCP - General Internal Medicine 04/27/15
--- OUTSIDE RECORDS SUMMARY | 2025-04-14 17:25 | XMS_ITS | Clinical Summary ---
Author Organization [facility] Address [address] [facility] [place] [address] Care Team Providers Care Software Sales Manager Name Role Phone Teri Jiang MD Primary Care Provider [phone] Source Comments [facility],non-owned Affiliates and Associated Physician Practices is amultiple site organization consisting of ambulatory clinics and hospital sitesin [place], [place], [place] and [place]. This disclosure is being madepursuant to the Care Everywhere program and may not contain all information available regarding this patient. Last updated 18.[facility] Allergies Active Allergy Reactions Criticality Noted Date Comments Adhesive Sensitivity Other 08/31/2017 redness Banana Other 01/09/2019 Severe stomach ache and diarrhead Penicillin G Shortness of Breath High 02/08/2016 Medications * Be aware that medications may not be up to date on this document. Alwaysverify current medications with the patient. topiramate (TOPAMAX) 100 MG tablet Take 100 mg by mouth BID. 0 08/16/2017 Active gabapentin (NEURONTIN) 300 MG capsule 0 08/16/2017 Active cetirizine (ZYRTEC) 10 MG tablet 0 07/25/2017 Active metoprolol succinate XL 24hr (TOPROL XL) 50 MG tablet Take 50 mg by mouth DAILY. 0 07/23/2017 Active venlafaxine (EFFEXOR) 100 MG tablet TK 1 T PO Q DAY AT DINNER 2 12/16/2018 Active albuterol HFA (PROVENTIL;VENT LINDSAY;PROAIR) 108 (90 Base) MCG/ACT inhaler INHALE 1 PUFF PO Q 6 TO 8 H PRN 0 10/29/2018 Active atenolol (TENORMIN) 25 MG tablet TK 1 T PO QD 01/18/2016 Active famotidine (PEPCID) 20 MG tablet Take 20 mg by mouth 2 times daily 06/16/2020 Active montelukast (SINGULAIR) 10 MG tablet 06/08/2020 Active bisacodyl EC (BISACODYL EC) 5 MG tablet At 4 pm take 2 tabs with 8 oz of water and then at 8 pm take 2 tabs with 8 oz of water 4 tablet 08/23/2020 Active vitamin D, ergocalciferol, (DRISDOL) 1.25 MG (43135 UT) capsule Take 1 (one) capsule by mouth every 7 days 12 capsule 10/04/2020 Active Active Problems Problem Noted Date Diagnosed Date Morbid (severe) obesity due to excess calories 1 05/26/2018 Body mass index (BMI) of 40.0-44.9 in adult 10/2018 Vitamin D deficiency 03/26/2019 Pre-op examination 09/03/2017 Ovarian tumor (benign), left Anxiety Arthritis Asthma Depression GERD (gastroesophageal reflux disease) Hypertension Joint pain Family History Medical History Relation Name Comments Cancer - Ovarian Maternal Aunt Diabetes - Type 2 Maternal Aunt Hypertension Maternal Aunt Other - Cardiac Maternal Aunt Diabetes - Type 2 Maternal Grandfather Hyperlipidemia Maternal Grandfather Other - Cardiac Maternal Grandfather had HI CVA Maternal Grandmother Cancer - Breast Maternal Grandmother Hypertension Maternal Grandmother Other - Cardiac Maternal Grandmother DVT - Deep Vein Thrombosis Mother Diabetes - Type 2 Mother Hyperlipidemia Mother Hypertension Mother Other - Cardiac Mother had HI Diabetes - Type 2 Sister Hyperlipidemia Sister Hypertension Sister Other - Cardiac Sister Relation Name Status Comments Maternal Aunt Maternal Grandfather Maternal Grandmother Mother Sister Alive Social History Tobacco Use Types Packs/Day Years Used Date Smoking Tobacco: Former Cigarettes 0 Q uit: 08/20/2003 Smokeless Tobacco: Never Alcohol Use Standard Drinks/Week Comments Not Currently 0 (1 standard drink = 0.6 oz pur e alcohol) Comments No Sex and Gender Information Value Date Recorded Sex Assigned at Female 10/01/2020 1:39 PM CDT Legal Sex Female 5:59 PM CDT Gender Identity Female 10/01/2020 1:39 PM CDT Sexual Orientation Straight 10/01/2020 1: 40 PM CDT Last Filed Vital Signs Vital Sign Reading Time Taken Comments Blood Pressure 128/70 08/23/2020 11:00 AM CDT Pulse 62 08/23/2020 11:00 AM CDT Temperature 36.4 C (97.5 F) 08/23/2020 11:00 AM CDT Respiratory Rate 16 08/23/2020 11:00 AM CDT Oxygen Saturation 98% 08/23/2020 11:00 AM CDT Inhaled Oxygen Concentration - - Weight 117.5 kg (259 lb) 10/04/2020 1:28 PM CDT Height 163.8 cm (5' 4.5) 10/04/2020 1:28 PM CDT Body Mass Index 43.77 10/04/2020 1:28 PM CDT Plan of Treatment Health Maintenance Due Date Last Done Comments COLOGUARD (AGES 45-75) - COL ON CA SCREENING 1967 COLON MONITORING 1967 COLONOSCOPY - COLON CA SCREENING 1967 CT COLONOGRAPHY - COLON CA SCREENING 1967 Colorectal Cancer Screening 1967 FIT - COLON CA SCREENING 1967 FLEX SIG - COLON CA SCREENING 1967 LIPID TESTING 1967 HIV SCREENING 1982 HEPATITIS C SCREENING 05/08/1985 DTAP/TDAP/TD VACCINES (1 - Tdap) 1986 HEPATITIS B VACCINE (1 of 3 - 19+ 3-dose series) 1986 PAP SMEAR 1988 Cervical Cancer Screening 1997 PAP with HPV 1997 PNEUMOCOCCAL VACCINE 50+ (1 of 1 - PCV) 2017 ZOSTER VACCINE (1 of 2) 2017 SCREENING FOR DIABETES 09/03/2020 09/03/2017 MAMMOGRAM 11/07/2020 11/07/2018 DEPRESSION SCREENING 05/21/2024 COVID-19 VACCINE (1 - 2024-2 6 season) 2025 INFLUENZA VACCINE (#1) 2025 HIB VACCINE Aged Out No longer eligi ble based on patient's age to complete this topic HPV VACCINE Aged Out No longer eligi ble based on patient's age to complete this topic MENINGOCOCCAL (Group B) VACC INE SHARED DECISION-MAKING Aged Out No longer eligibl e based on patient's age to complete this topic MENINGOCOCCAL GROUPS A/C/Y/W VACCINE Aged Out No longer eligible b ased on patient's age to complete this topic Procedures Procedure Name Priority Date/Time Associated Diagnosis Comments COMPREHENSIVE METABOLIC PANEL Pre-Op 09/03/2017 10:59 AM CDT Pre-op examination from Last 3 Months or Most Recently Relevant to Health Maintenance Results * (ABNORMAL) COMPREHENSIVE METABOLIC PANEL (09/03/2017 10:59 AM CDT) [facility] Glucose 87 74 - 106 mg/dL 09/03/2017 12:05 PM CDT [facility] Sodium 141 136 - 145 mmol/L 09/03/2017 12:05 PM CDT [facility] Potassium 3.4(L) 3.5 - 5.1 mmol/L 09/03/2017 12:05 PM CDT [facility] Chloride 107 98 - 107 mmol/L 09/03/2017 12:05 PM CDT [facility] CO2 26 22 - 31 mmol/L 09/03/2017 12:05 PM CDT [facility] Calcium 9.0 8.5 - 10.1 mg/dL 09/03/2017 12:05 PM CDT [facility] Anion Gap 8 8 - 16 mmol/L 09/03/2017 12:05 PM CDT [facility] BUN 11 7 - 21 mg/dL 09/03/2017 12:05 PM CDT [facility] Creatinine 0.90 0.50 - 1.30 mg/dL 09/03/2017 12:05 PM T [facility] Alkaline Phosphatase 55 38 - 126 U/L 09/03/2017 12:05 PM CDT [facility] ALT 22 13 - 61 U/L 09/03/2017 12:05 PM CDT [facility] AST 16 5 - 40 U/L 09/03/2017 12:05 PM T [facility] Protein Total 6.8 6.4 - 8.2 gm/dL 09/03/2017 12:05 PM CDT [facility] Albumin 3.2(L) 3.4 - 5.0 gm/dL 09/03/2017 12:05 PM T [facility] Bilirubin Total 0.3 0.2 - 1.0 mg/dL 09/03/2017 12:05 PM CDT [facility] eGFR by MDRD >60 >60 mL/min/1.7 3m2 09/03/2017 12:05 PM CDT [facility] eGFR by MDRD >60 >60 mL/min/1.7 3m2 09/03/2017 12:05 PM CDT [facility] Blood BLOOD SPECIMEN / Unknown Venipuncture / Unknown 09/03/2017 10:59 AM CDT 09/03/2017 11:27 AM CDT Mahesh Frank MD LAB - CHEMISTRY ORDERABLES Final Result Performing Organization Address City/State/[facility] Co de Phone Number [facility] [address] [place] [address] from Last 3 Months or Most Recently Relevant to Health Maintenance Insurance [facility] Advance Directives * Full Code (Latest Code Status on File) Date Activated Date Inactivated Comments 09/03/2017 7:18 PM 09/04/2017 3:40 PM Care Teams Software Sales Manager Relationship Specialty Start Date End Date Teri Jiang MD [address] [place] [phone] PCP - General Internal Medicine 09/03/17
--- OUTSIDE RECORDS SUMMARY | 2025-04-14 17:25 | XMS_ITS | Encounter Summary ---
Author Organization [facility] Address [address] [place] [address] Phone Care Team Providers Care Cleaning Attendant Name Role Phone Teri Jiang MD Primary Care Provider [phone] Encounter Details Date Type Department Care Team (Late st Contact Info) Description 06/18/2023 Transcribe Orders [facility] Central Scheduling [address] [place] [address] [place] [id number] [address] Social History Tobacco Use Types Packs/Day Years Used Date Smoking Tobacco: Former Alcohol Use Standard Drinks/Week Comments No 0 (1 standard drink = 0.6 oz pur e alcohol) Sexually Active Control Partners Comments Not Currently Comments No Sex and Gender Information Value Date Recorded Sex Assigned at Not on file Legal Sex Female 11:03 PM CDT Gender Identity Not on file Sexual Orientation Not on file documented as of this encounter Plan of Treatment Not on file documented as of this encounter Visit Diagnoses Not on filedocumented in this encounter Care Teams Cleaning Attendant Relationship Specialty Start Date End Date Teri Jiang MD PCP - General Internal Medicine 04/27/15 documented as of this encounter
--- OUTSIDE RECORDS SUMMARY | 2025-04-14 17:26 | XMS_ITS | Clinical Summary ---
Author Organization [facility] Address [address] [place] [id number] Care Team Providers Care Slipman Name Role Phone Unknown, Notinfile Primary Care Provider Unavail able Allergies Active Allergy Reactions Criticality Noted Date Comments Banana Stomach upset Reaction: GI upset, Cephalosporins Swelling High 07/18/2021 Other Other (See comments) Low 08/31/2017 redness Penicillins Other (See comments) High Reaction: Throat Swelling, Medications albuterol HFA (PROVENTIL HFA,VENTOLIN HFA,PROAIR HFA) 90 mcg/actuation inhaler Inhale 2 puffs every 6 (six) hours as needed for shortness of breath or wheezing 1 Active bisacodyl EC (DULCOLAX EC) 5 mg EC tablet Take 1 tablet (5 mg total) by mouth daily as needed for constipation 1 Active cetirizine (ZyrTEC) 10 mg tablet Take 1 tablet (10 mg total) by mouth nightly 6 Active famotidine (PEPCID) 20 mg tablet Take 1 tablet (20 mg total) by mouth 2 (two) times a day 1 Active topiramate (TOPAMAX) 100 mg tablet Take 1 tablet (100 mg total) by mouth 2 (two) times a day 6 Active metoprolol XL (TOPROL-XL) 50 mg extended release tablet Take 1 tablet (50 mg total) by mouth nightly Active amLODIPine (NORVASC) 5 mg tablet Take 1 tablet (5 mg total) by mouth daily 30 tablet 4 Active Symbicort 80-4.5 mcg/actuation inhaler INHALE 2 PUFFS BY MOUTH TWICE DAILY FOR ASTHMA Active fluticasone propionate (FLONASE) 50 mcg/actuation nasal spray Administer into each nostril daily Active pregabalin (LYRICA) 75 mg capsule Take 1 capsule (75 mg total) by mouth 2 (two) times a day 5 Active SUMAtriptan (IMITREX) 50 mg tablet [address] (CYMBALTA) 60 mg capsule Take 1 capsule (60 mg total) by mouth daily Active DULoxetine DR (CYMBALTA) 30 mg capsule Take by mouth daily 5 Active tiZANidine (ZANAFLEX) 4 mg tablet 5 Active Active Problems Problem Noted Date Diagnosed Date Hypertensive urgency 08/27/2023 Bradycardia 08/26/2023 Hypoglycemia 08/25/2023 Prediabetes 08/25/2023 Intermittent lightheadedness 08/25/2023 CKD (chronic kidney disease) stage 2, GFR 60-89 ml/min 08/25/2023 Near syncope 08/25/2023 Migraines 08/25/2023 Anxiety 12/03/2020 Arthritis 12/03/2020 Asthma 12/03/2020 Depression 12/03/2020 Joint pain 12/03/2020 Ovarian tumor (benign), left 12/03/2020 Encounter for screening colonoscopy 03/10/2020 Overview (03/10/2020): Added automatically from request for surgery [id number] BMI 45.0-49.9, adult 03/26/2019 Assessment & Plan (12/30/2024 11:45 AM CDT): Given their past success the patient would be a good candidate for weight loss surgery. We have gone over options such as the bypass and sleeve gastrectomy. We have also discussed risks and benefits such as blood clots, staple line leak as well as new or worsening reflux symptoms. We spent a fair amount of time on her issue with reflux. She would still like to pursue the sleeve gastrectomy. We have discussed extreme situations reflux gets so bad she would have to get converted to a bypass. They were in understanding. During this time will have them seen by the dietitian and psych. As we get closer to the time of surgery we will set him up for an EGD to look for hiatal hernia, H pylori or other gastric pathology. We will see them back in 4 weeks. They are in understanding of the plan. We have gone over small frequent meals shooting for a goal calorie intake of around 1600 spread throughout 4-5 meals. We have discussed not eating late at night. Greater than 15 minutes was spent in counseling the patient on diet and exercise with regards to her morbid obesity. Vitamin D deficiency 03/26/2019 Pre-op examination 09/03/2017 Gastroesophageal reflux disease without esophagi tis 02/17/2016 Mild intermittent asthma with acute exacerbation 02/17/2016 Morbid obesity 02/17/2016 Snores 02/17/2016 Knee pain 02/22/2012 Chronic bilateral low back pain 02/10/2011 Hypertension 02/10/2011 Encounters Date Type Department Care Team Description 04/10/2025 10:58 AM NUTRITION SERVICES ASSISTANT - 04/10/2025 11:59 PM NUTRITION SERVICES ASSISTANT Hospital Encounter [facility] Nutrition and Diabetic Education [address] [address] Champion, Tia uZleta RD Discharge Disposition: Discharge to home or self care 04/07/2025 9:00 AM NUTRITION SERVICES ASSISTANT Office Visit [address] [place] [address] Essence Soares NP Morbid obesity (HCC) (Primary Dx) 04/07/2025 Orders Only [facility] [address] [place] [address] [address] [place] [address] Guillermo Rosen MD Asthma in adult, unspecified asthma severity, unspecified whether complicated, unspecified whether persistent (Primary Dx); Morbid obesity (HCC) 03/18/2025 10:00 AM CDT - 03/18/2025 11:59 PM CDT Hospital Encounter [facility] Nutrition and Diabetic Education [address] Discharge Disposition: Discharge to home or self care 03/16/2025 1:00 PM CDT Therapy [facility] Physical Therapy [address] [place] [address] Jenniffer Up, PT Class 3 severe obesity with body mass index (BMI) of 50.0 to 59.9 in adult, unspecified obesity type, unspecified whether serious comorbidity present (Primary Dx) 03/10/2025 8:50 AM CDT Office Visit [address] [place] [address] Essence Soares NP Morbid obesity (HCC) (Primary Dx) 02/11/2025 10:00 AM CDT - 02/11/2025 11:59 PM CDT Hospital Encounter [facility] Nutrition and Diabetic Education 1 [facility] [address] [place] [address] Champion, Tia Zuleta RD Discharge Disposition: Discharge to home or self care 02/10/2025 11:00 AM CDT Office Visit [address] [place] [address] Essence Soares NP Morbid obesity (HCC) (Primary Dx); BMI 45.0-49.9, adult (HCC) 02/10/2025 Orders Only [address] [place] [address] Guillermo Rosen MD Morbid obesity (HCC) (Primary Dx); BMI 45.0-49.9, adult (HCC) from Last 3 Months Immunizations Immunization Administration Dates Next Due Influenza, Quadrivalent, Split, Intramuscular ,02/14/2018 Surgical History Surgery Date Site/Laterality Comments HYSTERECTOMY 05/21/2016 - 05/20/2017 CARPAL TUNNEL RELEASE 05/21/2002 - 05/20/2003 Bilateral CHOLECYSTECTOMY 05/21/2007 - 05/20/2008 COLONOSCOPY 09/21/2022 TONSILLECTOMY 05/21/1974 - 05/20/1975 Medical History Medical History Date Comments Hypertension PONV (postoperative nausea and vomiting) GERD (gastroesophageal reflux disease) Chronic constipation Chronic diarrhea Asthma Depression Arthritis Sleep apnea Family History Medical History Relation Name Comments Colon polyps Mother Diabetes Mother Heart disease Mother Relation Name Status Comments Father Mother Social History Tobacco Use Types Packs/Day Years Used Date Smoking Tobacco: Former Smokeless Tobacco: Never Tobacco Cessation:Counseling Given: Not Answered AUDIT-C Answer Date Recorded Q1: How often do you have a drink containing alc ohol? Never 08/25/2023 Average Number of Drinks Not on file 024 Frequency of Binge Drinking Not on file 10/2023 Personal Safety Answer Date Recorded Have you ever been in or are you currently in a harmful physical or emotional relationship or is someone making you feel afraid or unsafe? Denies 08/25/2023 Comments No Sex and Gender Information Value Date Recorded Sex Assigned at Not on file Legal Sex Female 2:53 PM NUTRITION SERVICES ASSISTANT Gender Identity Female 11/26/2020 12:57 AM CDT Sexual Orientation Straight 11/26/2020 12 :57 AM CDT Last Filed Vital Signs Vital Sign Reading Time Taken Comments Blood Pressure 157/70 04/07/2025 9:18 AM NUTRITION SERVICES ASSISTANT Pulse 63 04/07/2025 9:18 AM NUTRITION SERVICES ASSISTANT Temperature 36.2 C (97.1 F) 04/07/2025 9:18 AM NUTRITION SERVICES ASSISTANT Respiratory Rate 16 01/13/2024 8:10 PM CDT Oxygen Saturation 98% 04/07/2025 9:18 AM NUTRITION SERVICES ASSISTANT Inhaled Oxygen Concentration - - Weight 127 kg (280 lb) 04/10/2025 11:47 AM NUTRITION SERVICES ASSISTANT Height 160 cm (5' 3) 04/10/2025 11:47 AM NUTRITION SERVICES ASSISTANT Body Mass Index 49.6 04/10/2025 11:47 AM NUTRITION SERVICES ASSISTANT Plan of Treatment Health Maintenance Due Date Last Done Comments Depression Screening 1965 Hepatitis C Screening 1967 DTaP/Tdap/Td Vaccine (1 - Tdap) 1978 Hepatitis B Screening 1985 Regular Well Visit/Exam 18-64 1985 Pneumococcal vaccine <65 (1 of 2 - PCV) 1986 Zoster Vaccine (1 of 2) 2017 Breast Cancer Screening-Mammogram 11/17/2022 11/17/2021, 11/17/2021, 11/07/2018 Influenza Vaccine (#1) 2025 01/30/2019, 2017 Colon Cancer Screening-Colonoscopy 09/21/20322022 Colon Cancer Screening-CT Colonography Discontinued 09/21/2022 Colon Cancer Screening-DNA Stool Discontinued 09/22/19 Colon Cancer Screening-FIT Discontinued 09/21/2022 Colon Cancer Screening-Sigmoidoscopy Discontinued 08/2022 Procedures Procedure Name Priority Date/Time Associated Diagnosis Comments COLONOSCOPY 09/21/2022 8:52 AM CDT from Last 3 Months or Most Recently Relevant to Health Maintenance Results * COLONOSCOPY (09/21/2022 8:52 AM CDT) Anatomical Region Laterality Modality Other Narrative Procedure Note Ruddy Ordaz MD - 09/21/2022 8:52 AM CDT [facility] Patient Name: Livier Braden Procedure Date: 09/21/2022 8:52 AM Date of : 1965 Admit Type: Outpatient Age: 57 Gender: Female Attending MD: Ruddy Ordaz M.D. Room: [facility] ENDOSCOPY ROOM 1 Note Status: Finalized Patient Profile: Refer to note in patient chart for documentation of history and physical. Procedure: Colonoscopy Indications: Screening for colorectal malignant neoplasm, Thisis the patient's first colonoscopy Referring MD: Teri Jiang M.D. Providers: Ruddy Ordaz M.D. Impression: - Hemorrhoids found on perianal exam. - One 3 mm polyp in the ascending colon, removedwith a cold snare. Resected and retrieved. - Diverticulosis in the sigmoid colon. - The examination was otherwise normal. Recommendation: - Discharge patient to home. - Resume previous diet. - Continue present medications. - Await pathology results. - [facility] - Return to primary care physician as previously scheduled. Medicines: Propofol per Anesthesia Complications: No immediate complications. Estimated Blood Loss: Estimated blood loss: none. Procedure: Pre-Anesthesia Assessment: - This assessment was completed [Time ofAssessment] prior to the administration of sedation. The benefits, risks and alternatives of theprocedure and sedation were discussed and informed consentwas obtained. All questions were answered. Please referto the signed informed consent document in the medical record. The bowel preparation used was Miralax and bisacodyl tablets via single dose instruction. The scope was passed under direct vision. TheColonoscope [id number] was introduced through the anus and advanced to the the cecum, identified by appendiceal orifice and ileocecal valve. The colonoscopy was performed without difficulty. The patient tolerated the procedure well. The qualityof the bowel preparation was good. The ileocecalvalve, appendiceal orifice, and rectum werephotographed. Findings: Hemorrhoids were found on perianal exam. A 3 mm polyp was found in the ascending colon. The polyp was sessile. The polyp was removed with a cold snare. Resection and retrieval were complete. Verification of patient identification for the specimen was done by the physician and nurse using the patient's name and birthdate. Estimated blood loss was minimal. Multiple small and large-mouthed diverticula were found in thesigmoid colon. The exam was otherwise without abnormality. Electronically signed by Ruddy Ordaz M.D. Ruddy Ordaz M.D. 09/21/2022 10:38:27 AM Number of Addenda: 0 Note Initiated On: 09/21/2022 8:52 AM Procedure Code(s): --- Professional --- 72718, Colonoscopy, flexible; with removal of tumor(s), polyp(s), or other lesion(s) by snare technique --- Technical --- 30978, Colonoscopy, flexible; with removal of tumor(s), polyp(s), or other lesion(s) by snare technique Diagnosis Code(s): --- Professional --- K57.30, Diverticulosis of large intestine without perforation orabscess without bleeding D12.2, Benign neoplasm of ascending colon K64.9, Unspecified hemorrhoids Z12.11, Encounter for screening for malignant neoplasm of colon --- Technical --- K57.30, Diverticulosis of large intestine without perforation orabscess without bleeding D12.2, Benign neoplasm of ascending colon K64.9, Unspecified hemorrhoids Z12.11, Encounter for screening for malignant neoplasm of colon CPT copyright 2020 [employer]. All rights reserved. The codes documented in this report are preliminary and upon electroplating worker reviewmay be revised to meet current compliance requirements. Recognized by the [employer] for promoting quality in endoscopy Ruddy Ordaz MD ENDOSCOPY PROCEDURES Final Re sult from Last 3 Months or Most Recently Relevant to Health Maintenance Insurance [facility] Advance Directives For more information, please contact: [phone] * Full Code (Latest Code Status on File) Date Activated Date Inactivated Comments 08/25/2023 9:02 PM 08/27/2023 11:05 PM * Full Code Date Activated Date Inactivated Comments 09/21/2022 9:00 AM 09/21/2022 3:43 PM * Full Code Date Activated Date Inactivated Comments 09/21/2022 9:00 AM 09/21/2022 9:00 AM Care Teams Slipman Relationship Specialty Start Date End Date Unknown, Notinfile PCP - General 01/09/25
== END 2025-04-14 17:01 | disposition home or self-care (01) ==
PROVIDERS: Emergency Provider Nurse Practitioner Family; PCP Internal Medicine
DX: J45.901 Unspecified asthma with (acute) exacerbation (principal); J06.9 Acute upper respiratory infection, unspecified; Z20.822 Contact with and (suspected) exposure to COVID-19; I10 Essential (primary) hypertension; I25.2 Old myocardial infarction; Z87.891 Personal history of nicotine dependence
CPT/HCPCS: 87426; 94640; 96372; 99213; G0463; J2919